=== PATIENT | male | born 1980 | race American Indian/Alaskan Native ===

== ENCOUNTER 2017-07-11 22:31 | Emergency (ER) | payer MEDICAID, OTHER ==
[2017-07-11 22:31] VITALS: BMI 36.9
[2017-07-11 22:38] VITALS: BP 144/88; PULSE 83; TEMP 99.7; O2SAT 98
[2017-07-11] MEDS ORDERED: Oxycodone/Acetaminophen 5/325 mg Tab PO STA (22:52)
[2017-07-11] MEDS ORDERED: Oxycodone/Acetaminophen 5/325 mg Tab ONE (22:56)
--- NOTE | 2017-07-12 00:05 | C.PDOC ---
History Of Present Illness 37 year old male presents to the ER with a complaint of left ankle pain that began approximately 2 hours [employer] after he twisted his left ankle while coming down from his truck. Patient was able to ambulate after the injury and was able to drive back from [place]. Patient reports he has a history of a fracture to the same ankle years prior. Denies weakness or numbness of the left foot. Time Seen by Provider: 07/11/17 22:45 Chief Complaint (Nursing): Lower Extremity Problem/Injury History Per: Patient History/Exam Limitations: no limitations Onset/Duration Of Symptoms: Hrs Current Symptoms Are (Timing): Still Present Recent travel outside of the [place]: No - Ankle/Foot Description Of Injury: Twisted Past Medical History Reviewed: Historical Data, Nursing Documentation, Vital Signs Vital Signs: Last Vital Signs Temp 99.7 F H 07/11/17 22:34 Pulse 83 07/11/17 22:34 Resp 20 07/12/17 00:35 BP 144/88 07/11/17 22:34 Pulse Ox 98 07/12/17 00:05 - Medical History PMH: Gastrointestinal Ulcer Family History: States: Unknown Family Hx - Social History Hx Tobacco Use: Yes Hx Alcohol Use: No Hx Substance Use: Yes (CANNABIS) - Immunization History Hx Tetanus Toxoid Vaccination: No Hx Influenza Vaccination: No Hx Pneumococcal Vaccination: No Review Of Systems Musculoskeletal: Positive for: Foot Pain Neurological: Negative for: Weakness, Numbness Physical Exam - Physical Exam Appears: Non-toxic, No Acute Distress Skin: Normal Color, Warm, Dry Head: Atraumatic, Normacephalic Eye(s): bilateral: Normal Inspection Extremity: Capillary Refill (<2 seconds), Other (Moderate swelling to left medial and lateral malleolus with tenderness. Left knee, foot, and toes normal.) Pulses: Left Dorsalis Pedis: Normal, Right Dorsalis Pedis: Normal Neurological/Psych: Oriented x3, Normal Speech, Normal Motor, Normal Sensation ED Course And Treatment O2 Sat by Pulse Oximetry: 98 (Room air) Pulse Ox Interpretation: Normal - Other Rad Left ankle x-ray X-Ray: Interpreted by Me, Viewed By Me Interpretation: No acute fractures or dislocations. Left foot x-ray X-Ray: Interpreted by Me, Viewed By Me Interpretation: No acute fractures or dislocations. Medical Decision Making Medical Decision Making: Left ankle and foot x-rays ordered, results were negative. Percocet administered for pain, patient reports improvement of pain. Patient placed in manuela wrap by CP, given crutches with instructions for nonweight bearing, instructed on RICE, and ice therapy for reduction of swelling. Patient agrees with plan and will follow up with PMD. Disposition - Disposition Referrals: Eric Simmons III, MD [Staff Provider] - Disposition: HOME/ ROUTINE Disposition Time: 00:02 Condition: GOOD Additional Instructions: Follow up with the Orthopedist/clinic within 3-5 days without fail. Return if worsened. Instructions: Ankle Sprain (ED) Forms: [facility] (Kyrgyz), Work Excuse - Clinical Impression Clinical Impression: Ankle sprain - PA / INSTRUCTOR KINDERGARTEN / Resident Statement MD/DO has reviewed & agrees with the documentation as recorded. - Scribe Statement The provider has reviewed the documentation as recorded by the Scribe Russell Collins All medical record entries made by the Scribe were at my direction and personally dictated by me. I have reviewed the chart and agree that the record accurately reflects my personal performance of the history, physical exam, medical decision making, and the department course for this patient. I have also personally directed, reviewed, and agree with the discharge instructions and disposition.
[2017-07-12 00:36] VITALS: RESP 20
--- NOTE | 2017-07-12 10:03 | RAD ---
PROCEDURE: Left Ankle Radiographs. HISTORY: ankle injury, pain. to bilateral malleolus COMPARISON: None FINDINGS: BONES: Normal. No fracture. JOINTS: Normal. No osteoarthritis. Ankle mortise maintained. Talar dome intact SOFT TISSUES: Lateral soft tissue swelling OTHER FINDINGS: None. IMPRESSION: No acute fracture. Lateral soft tissue swelling.
--- NOTE | 2017-07-12 10:05 | RAD ---
PROCEDURE: Left Foot Radiographs. HISTORY: foot injury, pain COMPARISON: None. FINDINGS: BONES: Normal. No fracture. JOINTS: Normal. SOFT TISSUES: Normal. OTHER FINDINGS: None. IMPRESSION: Normal left foot radiographs.
== END 2017-07-12 00:35 | disposition home or self-care (01) ==
LOC: SUPCPDRO 22:31 → C.ER 22:31
DX: S93.402A Sprain of unspecified ligament of left ankle, initial encounter (principal); X50.9XXA Other and unspecified overexertion or strenuous movements or postures, initial encounter

== ENCOUNTER 2017-07-18 13:23 | Emergency (ER) | payer MEDICAID ==
[2017-07-18 13:24] VITALS: BMI 36.9
--- NOTE | 2017-07-18 14:00 | C.PDOC ---
Time Seen by Provider: 07/18/17 13:50 Chief Complaint (Nursing): Lower Extremity Problem/Injury Past Medical History Vital Signs: Last Vital Signs Temp 98.6 F 07/18/17 13:32 Pulse 75 07/18/17 13:32 Resp 19 07/18/17 13:32 BP 157/92 H 07/18/17 13:32 Pulse Ox 98 07/18/17 13:32 - Medical History PMH: Gastrointestinal Ulcer Denies: Depression Family History: States: Unknown Family Hx - Social History Hx Tobacco Use: Yes Hx Alcohol Use: No Hx Substance Use: Yes - Immunization History Hx Tetanus Toxoid Vaccination: No Hx Influenza Vaccination: No Hx Pneumococcal Vaccination: No ED Course And Treatment O2 Sat by Pulse Oximetry: 98 Disposition - Disposition
--- NOTE | 2017-07-18 14:10 | C.PDOC ---
History Of Present Illness 37 year old male presents to the ED for evaluation of persistent left ankle pain SP twisting his ankle that has been going on since 07/12. Patient reports he was evaluated on 07/12 for same complaint and the X-Ray taken at that time was negative. Patient followed up with his PMD who referred him to an orthopedist but patient states he was not able to get an appointment until September. Patient reports hi pain is unchanged has limited with weight bearing. Patient denies any new injury, fall, trauma, weakness, numbness. PERSIST L ANKLE PAIN SINCE 07/12. S/P TWISTED ANKLE, EVAL ON 07/12 FOR SAME NEG XRAY. PS FU W HIS PMD, REFERRED HIM TO ORTHO BUT PS NO APPOINTMENTS UNTIL SEPTEMBER. PAIN UNCH, LIMITED FULL WT BEAR DENIES NEW INJURY EXAM NAD EXT L FOOT/ANKLE +SWELL L LAT MALL NO FOCAL TEND AROM WO DIFF SKIN INTACT REMIANDE RNEG Time Seen by Provider: 07/18/17 13:50 Chief Complaint (Nursing): Lower Extremity Problem/Injury History Per: Patient History/Exam Limitations: no limitations Onset/Duration Of Symptoms: Persistent Current Symptoms Are (Timing): Still Present Recent travel outside of the [place]: No Additional History Per: Patient - Ankle/Foot Description Of Injury: Twisted Currently Unable To: Bear Weight Past Medical History Reviewed: Historical Data, Nursing Documentation, Vital Signs Vital Signs: Last Vital Signs Temp 98.6 F 07/18/17 13:32 Pulse 75 07/18/17 13:32 Resp 19 07/18/17 13:32 BP 157/92 H 07/18/17 13:32 Pulse Ox 98 07/18/17 14:21 - Medical History PMH: Gastrointestinal Ulcer Denies: Depression Surgical History: No Surg Hx Family History: States: Unknown Family Hx - Social History Hx Tobacco Use: Yes Hx Alcohol Use: No Hx Substance Use: Yes - Immunization History Hx Tetanus Toxoid Vaccination: No Hx Influenza Vaccination: No Hx Pneumococcal Vaccination: No Review Of Systems Constitutional: Negative for: Fever, Chills Cardiovascular: Negative for: Chest Pain, Palpitations Respiratory: Negative for: Cough, Shortness of Breath Gastrointestinal: Negative for: Nausea, Vomiting, Abdominal Pain Genitourinary: Negative for: Dysuria, Hematuria Musculoskeletal: Positive for: Foot Pain Skin: Negative for: Rash Neurological: Negative for: Weakness, Numbness, Headache Physical Exam - Physical Exam Appears: Non-toxic, No Acute Distress Skin: Normal Color, Warm, Dry Head: Atraumatic, Normacephalic Eye(s): bilateral: Normal Inspection Nose: No Discharge, No Deformity Extremity: Normal ROM (with no difficulty ), Tenderness (no focal left foot, lateral malleolus), No Pedal Edema, No Calf Tenderness, Capillary Refill (< 2 seconds), No Deformity, Swelling (+ left lateral malleolus) Pulses: Left Dorsalis Pedis: Normal, Right Dorsalis Pedis: Normal Neurological/Psych: Oriented x3, Normal Speech, Normal Cognition Gait: Steady ED Course And Treatment O2 Sat by Pulse Oximetry: 98 (On RA) Pulse Ox Interpretation: Normal - Other Rad L FOOT X-Ray: Interpreted by Me (NEG UNCH PRIOR) L ANKLE X-Ray: Interpreted by Me (NEG UNCH PRIOR) Progress - Re-Evaluation Re-evaluation Note: 07/18/17 14:09 D/W PODIATRY RESIDENT WILL EVAL IN ER 07/18/17 16:16 CLEARED DC BY PODIATRY. OUTPT MRI RX GIVEN BY PODIATRY TO PATIENT. FU PODIATRY CLINIC 07/21 - Data Reviewed Data Reviewed: Diagnostic imaging, Old records Medical Decision Making Medical Decision Making: Impression : persistent left foot/ankle pain Plan: * Left foot X-Ray * Left ankle X-Ray * 14:06 - called podiatry Disposition - Disposition Referrals: MRI,OUTPATIENT [Other] [facility] [Outside] [facility] [Outside] Disposition: HOME/ ROUTINE Disposition Time: 16:15 Condition: IMPROVED Additional Instructions: FOLLOW UP PODIATRY CLINIC 07/21/17 Prescriptions: Ibuprofen [Motrin] 600 mg PO Q6 #30 tab oxyCODONE/Acetaminophen [Percocet 5/325 mg Tab] 1 ea PO Q6 PRN #10 tab PRN Reason: Pain, Moderate (4-7) Instructions: Ankle Sprain (ED) Forms: [facility] (Chadian), Work Excuse - Clinical Impression Clinical Impression: Ankle pain - Scribe Statement The provider has reviewed the documentation as recorded by the Scribe Edu Watt All medical record entries made by the Scribe were at my direction and personally dictated by me. I have reviewed the chart and agree that the record accurately reflects my personal performance of the history, physical exam, medical decision making, and the department course for this patient. I have also personally directed, reviewed, and agree with the discharge instructions and disposition.
--- NOTE | 2017-07-18 14:16 | RAD ---
PROCEDURE: Left Foot Radiographs. HISTORY: pain please compare w prior 07/12/17 COMPARISON: None. FINDINGS: BONES: Normal. No fracture. JOINTS: Normal. SOFT TISSUES: Normal. OTHER FINDINGS: None. IMPRESSION: Normal left foot radiographs.
--- NOTE | 2017-07-18 14:17 | RAD ---
PROCEDURE: Left Ankle Radiographs. HISTORY: pain please compare w prior 07/12/17 COMPARISON: None FINDINGS: BONES: Normal. No fracture. JOINTS: Normal. No osteoarthritis. Ankle mortise maintained. Talar dome intact SOFT TISSUES: Nonspecific circumferential soft tissue swelling. OTHER FINDINGS: None. IMPRESSION: No fracture/ dislocation. Circumferential soft tissue swelling.
[2017-07-18] MEDS ORDERED: Naproxen 550 mg Tab PO STA (14:35)
[2017-07-18] MEDS ORDERED: Oxycodone/Acetaminophen 5/325 mg Tab PO STA (14:35)
[2017-07-18] MEDS ORDERED: Naproxen 550 mg Tab PO ONE (14:53)
[2017-07-18] MEDS ORDERED: Oxycodone/Acetaminophen 5/325 mg Tab ONE (14:53)
--- NOTE | 2017-07-18 16:02 | CP.PCM.CON ---
History of Present Illness - History of Present Illness History of Present Illness: 37 year old male seen in ED complaining of painful left ankle. Patient was last seen in ED one week ago for same problem. He states that he inverted his ankle while stepping down from a tractor trailer and heard/felt a pop on his lateral ankle at the time of injury. Patient denies any new trauma since last week. He states that he has been icing and elevating regularly. He also states that he has remained strictly non weight bearing with the use of crutches. He states that he has been taking Tylenol regularly which has done little to help his pain. Patient denies any further pedal complaints at this time. Denies N/V/F/C/ CP/SOB/D/posterior calf pain when squeezed Review of Systems - Review of Systems Review of Systems: ROS as per HPI Past Patient History - Infectious Disease Hx of Infectious Diseases: None - Tetanus Immunizations Tetanus Immunization: Up to Date - Past Social History Smoking Status: Heavy Smoker > 10 Cigarettes Daily - PSYCHIATRIC Hx Depression: No Hx Substance Use: Yes - SURGICAL HISTORY Hx Surgeries: No - ANESTHESIA Hx Anesthesia: No Meds Allergies/Adverse Reactions: Allergies Allergy/AdvReac Type Severity Reaction Status Date / Time trazodone Allergy Verified 07/18/17 13:37 Physical Exam - Constitutional Appears: Well, Non-toxic, No Acute Distress - Extremities Exam Additional comments: LLE focused exam: Vasc: DP/PT pulses palpable 2/4 b/l. Skin temperature warm to warm from proximal to distal. CFT < 3 seconds to all digits. Diffuse edema localized to left lateral malleolus Neuro: Epicritic and protective sensation grossly intact b/l Derm: No open lesions, wounds, maceration, xerosis, abnormal pigmentation or abnormal growths b/l. Nails 1-5 noted to be dystrophic and thickened MSK: Severe POP to lateral malleolus at level of ATFL, CFL, and along peroneal tendons. Less severe POP to deltoid ligaments. No POP and no palpable dell to achilles tendon. No POP to styloid process of fifth metatarsal. No POP to navicular tuberosity. No other gross deformities noted - Neurological Exam Neurological exam: Alert, Oriented x3 - Psychiatric Exam Psychiatric exam: Normal Affect, Normal Mood Results - Vital Signs Recent Vital Signs: Last Vital Signs Temp 98.6 F 07/18/17 13:32 Pulse 75 07/18/17 13:32 Resp 19 07/18/17 13:32 BP 157/92 H 07/18/17 13:32 Pulse Ox 98 07/18/17 14:21 Assessment & Plan - Assessment and Plan (Free Text) Assessment: 37 year old male seen in ED for left lateral ankle sprain Plan: Patient seen and evaluated Plan discussed with attending Dr. Cuadra Patient advised to take ibuprofen as needed for pain and inflammation Foot and ankle xrays from previous ED visit and current ED visit assessed with no evidence of fracture noted Styles compression applied to patients left LE Rx MRI LLE given to patient Patient advised to remain NWB to left leg, ice and elevate foot regularly Patient to f/u in Dr. Cuadra's clinic at [facility] after getting MRI
[2017-07-18 16:22] VITALS: BP 130/87; PULSE 79; RESP 18; TEMP 98.2; O2SAT 96
== END 2017-07-18 16:22 | disposition home or self-care (01) ==
LOC: C.ER 13:23
DX: S93.402D Sprain of unspecified ligament of left ankle, subsequent encounter (principal); X50.9XXD Other and unspecified overexertion or strenuous movements or postures, subsequent encounter

== ENCOUNTER 2017-12-25 18:47 | Emergency (ER) | payer MEDICAID ==
[2017-12-25 18:47] VITALS: BMI 36.9
[2017-12-25 18:56] VITALS: BP 146/90; PULSE 60; RESP 16; TEMP 97.3; O2SAT 99
--- NOTE | 2017-12-25 19:18 | C.PDOC ---
History Of Present Illness 37 yo male c/o right sided dental pain for 4 days. Pt was seen and evaluated by dentist on Friday, prescribed Motrin (last dose 12 hrs ago) and Amoxicillin. Pt notes that pain persists. Cold water makes it feel better. Denies changes in sensation, facial swelling, fever, headaches, neck pain, difficulty breathing or swallowing. Pt has an appointment for extraction tomorrow at 10 am. Time Seen by Provider: 12/25/17 19:01 Chief Complaint (Nursing): Dental Pain History Per: Patient History/Exam Limitations: no limitations Onset/Duration Of Symptoms: Days Current Symptoms Are (Timing): Still Present Past Medical History Vital Signs: Last Vital Signs Temp 97.3 F L 12/25/17 18:53 Pulse 60 12/25/17 18:53 Resp 16 12/25/17 18:53 BP 146/90 12/25/17 18:53 Pulse Ox 99 12/25/17 18:53 - Medical History PMH: Gastrointestinal Ulcer Denies: Depression Family History: States: Unknown Family Hx - Social History Hx Tobacco Use: Yes Hx Alcohol Use: No Hx Substance Use: Yes - Immunization History Hx Tetanus Toxoid Vaccination: No Hx Influenza Vaccination: No Hx Pneumococcal Vaccination: No Review Of Systems Except As Marked, All Systems Reviewed And Found Negative. ENT: Positive for: Mouth Pain Physical Exam - Physical Exam Appears: Well, Non-toxic, No Acute Distress Skin: Normal Color, Warm, Dry Head: Atraumatic, Normacephalic Eye(s): bilateral: Normal Inspection, EOMI Nose: Normal Oral Mucosa: Moist Teeth: Caries (large rashad in the right maxillary molar ), Tender To Palpation Gingiva: No Swelling, No Tender, No Abscess Throat: Normal, No Erythema, No Exudate Neck: Normal, Normal ROM, Supple Chest: Symmetrical Cardiovascular: Rhythm Regular Respiratory: Normal Breath Sounds, No Accessory Muscle Use Back: Normal Inspection Extremity: Normal ROM Neurological/Psych: Oriented x3, Normal Speech ED Course And Treatment O2 Sat by Pulse Oximetry: 99 Progress Note: TOradol and Lidocaine ordered. Pt tolerating po. Afebrile. No difficulty breathing or swallowing. Instructed to continue abx and NSAID, can take tramadol if pain persists. Instructed to follow up with the dentist as scheduled tomorrow or return to ER if symtpoms persist or worsen. Disposition - Disposition Disposition: HOME/ ROUTINE Disposition Time: 19:15 Condition: STABLE Additional Instructions: Take the motrin every 6 hours. If pain persists, you can add the Tramadol. Follow up with the dentist tomorrow as scheduled. Return to ER if symptoms persist or worsen. Prescriptions: traMADol [Ultram] 50 mg PO Q8 #20 tab Instructions: Dental Pain (DC) - Clinical Impression Clinical Impression: Dental caries
== END 2017-12-25 19:33 | disposition home or self-care (01) ==
LOC: C.ER 18:47
DX: K02.9 Dental caries, unspecified (principal)
CPT/HCPCS: 96372; 99283; J1885